=== PATIENT | female | born 1950 | race Two or more races ===

== ENCOUNTER 2018-08-22 06:03 | Emergency (ER) | payer OTHER ==
[2018-08-22] MEDS ORDERED: NS 1,000 ML IV ONE (06:05)
[2018-08-22] MEDS ORDERED: MECLIZINE HCL 25 MG TAB PO ONE ×2 (06:05→07:14)
[2018-08-22] MEDS ORDERED: ONDANSETRON 4 MG/2 ML VIAL ONE (06:21)
[2018-08-22] MEDS ORDERED: ONDANSETRON 4 MG/2 ML VIAL IVP ONE (06:22)
[2018-08-22] MEDS ORDERED: LORazepam 2 MG/ML INJ IVP ONE (06:22)
[2018-08-22 06:29] LABS: PLATELET COUNT 341 10^3/uL (150-400)
--- NOTE | 2018-08-22 06:56 | EDPHY ---
H & P Stated Complaint: Dizziness Source: Patient Exam Limitations: No limitations - Personal History Current Tetanus/Diphtheria Vaccine: Yes Current Tetanus Diphtheria and Acellular Pertussis (TDAP): Yes - Medical/Surgical History Hx Asthma: No Hx Chronic Respiratory Disease: No Hx Diabetes: No Hx Cardiac Disease: No Hx Renal Disease: No Hx Cirrhosis: No Hx Alcoholism: No Hx HIV/AIDS: No Hx Splenectomy or Spleen Trauma: No Other PMH: htn, , mckinley - Social History Smoking Status: Never smoked Time Seen by Provider: 08/22/18 06:05 HPI/ROS: HPI The patient presents with dizziness with nausea and vomiting which began about 1 hr prior to presentation, she is brought in by paramedics. She is visiting her family from [place] and has been in the [place] For the past 3 months. She for the last 3 days has been complaining that her ears feel clogged. This morning her ears "popped" and immediately afterwards while lying in bed she developed acute onset of dizziness which she feels as if the room is spinning. She is most comfortable if she lies on her right side flat in bed. She began vomiting shortly after this. Her son-in-law I was unable to sit her up to bring her into the hospital so 911 was called. The patient has a history of similar though not quite this severe. She is not taking any new medications. She does not have a headache. She does report decreased hearing in both of her ears.. REVIEW OF SYSTEMS 10 systems were reviewed and negative with the exception of the elements mentioned in the history of present illness. PMHx: Hypertension, pre diabetes, status post cholecystectomy Soc Hx: Visiting her family from [place] PHYSICAL General Appearance: Alert, no distress Eyes: Pupils equal and round no pallor or injection ENT, Mouth: Mucous membranes moist, both ear canals are occluded with large amount of cerumen Respiratory: There are no retractions, lungs are clear to auscultation Cardiovascular: Regular rate and rhythm Gastrointestinal: Abdomen is soft and non-tender, no masses, bowel sounds normal Neurological: A&O, cranial nerves 2-12 intact, normal finger to nose testing bilaterally, unable to ambulate her currently Skin: Warm and dry, no rashes Musculoskeletal: Neck is supple non tender Extremities: symmetrical, full range of motion Psychiatric: Patient is oriented X 3, there is no agitation (Riguzzi,Loan) Constitutional: Initial Vital Signs Temperature (C) 36.6 C 08/22/18 06:07 Heart Rate 74 08/22/18 06:07 Respiratory Rate 16 08/22/18 06:07 Blood Pressure 132/73 H 08/22/18 06:07 O2 Sat (%) 95 08/22/18 06:07 O2 Delivery Mode Room Air Allergies/Adverse Reactions: No Known Allergies Allergy (Unverified 08/22/18 06:06) Home Medications: Medication Instructions Recorded Atenolol [Tenormin 25 mg (*)] 25 mg PO DAILY 08/22/18 Meclizine HCl 25 mg PO Q6H PRN #20 tablet 08/22/18 Meclizine HCl [Meclizine HCl 25 mg 25 mg PO Q6 PRN #20 tab 08/22/18 (RX,OTC)] Ondansetron Odt [Zofran Odt] 4 mg PO Q4PRN #6 tab 08/22/18 Valsartan 08/22/18 Medical Decision Making - Diagnostics EKG Interpretation: EKG: Complete interpretation has been separately recorded in the [facility] archive. Summary impression: Normal sinus rhythm (Loan Fajardo) Differential Diagnosis: 67-year-old female with hypertension presents with acute onset of vertigo in the setting of ear pressure. This is associated with nausea and vomiting though no headache. She has prior history of similar though this is most severe. The vertigo is positional. On exam, she has normal finger to nose testing and no nystagmus. Differential diagnosis includes peripheral vertigo due to BPPV labyrinthitis, would also consider posterior circulation CVA. In the emergency department, patient received IV fluids, antiemetics, meclizine. Basic labs were checked and did reveal elevated blood glucose. She reports that she does have pre diabetes and mixed suspect this may be related. I have advised her that she will need follow-up for this. At about 7:00 a.m., case is signed out to the oncoming provider Dr. Rutledge. The patient is getting her ears irrigated currently and has just received her medications. We will see how she responds. (Loan Fajardo) Other Provider: Care the patient is seemed at 7:00 a.m., has a presentation most likely due to acute peripheral vertigo. Plan for serial examinations and disposition and further evaluation depending on response to therapy. 735: Patient re-evaluated, had 2nd dose of meclizine in the ED because of persistent symptoms. Assistance from her son who is in the room. Tympanic membrane irrigation performed but still has cerumen in the canal on the right side, although not the left tympanic membrane is visible and is clear. She is able to sit up in the bed unassisted and still feels "a little bit loopy " with translation by her son from the [place], she does feel a lot better and would much prefer to go home rather than be admitted. She seems alert and able to answer questions appropriately and not in any acute distress at this time. I think that additional diagnostics including imaging is not clinically indicated at this time. Does not have neck pain or headache. At this point I think that peripheral vertigo is much more likely than vertebral dissection or cerebellar stroke. The patient asks if this could be labyrinthitis which I think is certainly of the more likely diagnoses. Plan for Debrox ear drops, Zofran and meclizine, discharge if continues to improve. Elevated glucose consistent with her known diagnosis of "prediabetes. " 829: Ambulatory to the bathroom, still has some symptoms but appears clinically stable and does not have ataxia or require assistance. (Oh Rutledge) - Data Points Laboratory Results: Laboratory Results 08/22/18 06:00 08/22/18 06:00 08/22/18 08/22/18 06:00 06:00 WBC 9.92 10^3/uL H 10^3/uL (3.80-9.50) RBC 4.59 10^6/uL 10^6/uL (4.18-5.33) Hgb 13.8 g/dL g/dL (12.6-16.3) Hct 40.3 % % (38.0-47.0) MCV 87.8 fL fL (81.5-99.8) MCH 30.1 pg pg (27.9-34.1) MCHC 34.2 g/dL g/dL (32.4-36.7) RDW 13.1 % % (11.5-15.2) Plt Count 341 10^3/uL 10^3/uL (150-400) MPV 10.7 fL fL (8.7-11.7) Neut % (Auto) 38.0 % L % (39.3-74.2) Lymph % (Auto) 52.8 % H % (15.0-45.0) [place] % (Auto) 5.5 % % (4.5-13.0) Eos % (Auto) 2.2 % % (0.6-7.6) Baso % (Auto) 0.4 % % (0.3-1.7) Nucleat RBC Rel Count 0.0 % % (0.0-0.2) Absolute Neuts (auto) 3.77 10^3/uL 10^3/uL (1.70-6.50) Absolute Lymphs (auto) 5.24 10^3/uL H 10^3/uL (1.00-3.00) Absolute Monos (auto) 0.55 10^3/uL 10^3/uL (0.30-0.80) Absolute Eos (auto) 0.22 10^3/uL 10^3/uL (0.03-0.40) Absolute Basos (auto) 0.04 10^3/uL 10^3/uL (0.02-0.10) Absolute Nucleated RBC 0.00 10^3/uL 10^3/uL (0-0.01) Immature Gran % 1.1 % % (0.0-1.1) Immature Gran # 0.11 10^3/uL H 10^3/uL (0.00-0.10) RBC/WBC/PLT Morphology TNP Platelet Estimate TNP Sodium 138 mEq/L mEq/L (135-145) Potassium 3.7 mEq/L mEq/L (3.5-5.2) Chloride 103 mEq/L mEq/L (97-110) Carbon Dioxide 25 mEq/l mEq/l (22-31) Anion Gap 10 mEq/L mEq/L (6-14) BUN 17 mg/dL mg/dL (7-23) Creatinine 0.6 mg/dL mg/dL (0.6-1.0) Estimated GFR > 60 Glucose 209 mg/dL H mg/dL (70-100) Calcium 9.2 mg/dL mg/dL (8.5-10.4) Medications Given: Discontinued Medications Sodium Chloride (Ns) 1,000 mls @ 0 mls/hr IV EDNOW ONE; Wide Open PRN Reason: Protocol Stop: 08/22/18 06:06 Last Admin: 08/22/18 06:23 Dose: 1,000 mls Lorazepam (Ativan Injection) 0.5 mg IVP EDNOW ONE Stop: 08/22/18 06:23 Last Admin: 08/22/18 06:27 Dose: 0.5 mg Meclizine HCl (Meclizine Hcl) 25 mg PO EDNOW ONE Stop: 08/22/18 06:06 Last Admin: 08/22/18 06:25 Dose: 25 mg Meclizine HCl (Meclizine Hcl) 25 mg PO EDNOW ONE Stop: 08/22/18 07:15 Last Admin: 08/22/18 07:17 Dose: 25 mg Ondansetron HCl (Zofran) 4 mg IVP EDNOW ONE Stop: 08/22/18 06:23 Last Admin: 08/22/18 06:24 Dose: 4 mg Departure - Departure Disposition: Home, Routine, Self-Care Clinical Impression: Vertigo, Impacted cerumen of both ears, Elevated glucose Condition: Fair Instructions: Vertigo (ED) Additional Instructions: You may want to buy Debrox which is a medication that is available over-the- counter which can help with ear wax buildup. Please return to the emergency department if your worse in any way. Referrals: Antony Whalen MD [Medical Doctor] - As per Instructions Prescriptions: Meclizine HCl 25 mg PO Q6H PRN #20 tablet PRN Reason: vertigo Meclizine HCl [Meclizine HCl 25 mg (RX,OTC)] 25 mg PO Q6 PRN #20 tab PRN Reason: Dizziness Ondansetron Odt [Zofran Odt] 4 mg PO Q4PRN #6 tab
[2018-08-22] MEDS ORDERED: MECLIZINE HCL 25 MG TAB ONE (07:13)
[2018-08-22 08:49] VITALS: BP 155/85
--- NOTE | 2018-08-24 07:11 | CPEKG ---
Test Reason : OPEN Blood Pressure : / mmHG Vent. Rate : 081 BPM Atrial Rate : 081 BPM P-R Int : 163 ms QRS Dur : 092 ms QT Int : 441 ms P-R-T Axes : 063 012 040 degrees QTc Int : 512 ms Sinus rhythm Prolonged QT interval Confirmed by Loan Fajardo ([id number]) on 08/24/2018 7:11:33 AM Referred By: Oh Rutledge Confirmed By:Loan Fajardo
== END 2018-08-22 08:40 | disposition home or self-care (01) ==
PROC: 3E1B78Z Irrigation of Ear using Irrigating Substance, Via Natural or Artificial Opening (ICD-10-PCS; principal; 2018-08-22)
DX: R42 Dizziness and giddiness (principal); H61.23 Impacted cerumen, bilateral; E86.9 Volume depletion, unspecified; I10 Essential (primary) hypertension
CPT/HCPCS: 96374; J2060; J2405